=== PATIENT | female | born 1955 | race African-American/Black ===

== ENCOUNTER → 2018-07-28 | Outpatient (CLI) | payer OTHER ==
[~2018-07-28] VITALS: Ht 154.9 cm; Wt 83.9 kg
[~2018-07-28] MED LIST: ACYCLOVIR 400400 MG PO; AMLODIPINE BESY10 MG PO; FELODIPINE 5 MG5 M1 PO; FISH OIL 1,001000 M2 PO; FLUOCINOLONE AC15 GM TOP; HYDROCHLOROTHIA25 M2 PO; LOSARTAN POTAS100 MG PO; PROAIR HFA8.5 GM INH; SIMVASTATIN40 MG PO; SINGULAIR 10 MG10 M1 PO; TRAMADOL 50 MG50 MG PO
--- NOTE | ~2018-07-28 | PATH ---
[facility] [address] [address] PATHOLOGY RPT PROCEDURE Name: TIERRA GRIFFITH ALFONSO Room #: REG [facility] Chi.#: [id number] Admission: 07/28/18 Date of : 55 Discharge: Report #: [id number] Path Case #: [id number] [facility] Accession Number: [id number] . 01 Material submitted: . PART A: POLYP AT 70 CM PART B: BX OF POLYP AT PROX ASCENDING COLON PART C: POLYP AT HEPATIC FLEXURE . 01 Clinical history: . Screening, colon polyps, diverticulosis . 02 Diagnosis: A. Polyp, at 70 cm, endoscopic biopsy: - Larger fragment showing a tubular adenoma without high-grade dysplasia. - Smaller fragments sampled showing hyperplastic changes without any dysplasia. . B. Polyp, at proximal ascending colon, endoscopic biopsy: - Tubular adenoma. - Negative for high-grade dysplasia. . C. Polyp, at hepatic flexure, endoscopic biopsy: - Tubular adenoma. - Negative for high-grade dysplasia. (IUV:pit 07/29/2018) QTP/07/29/2018 . 02 Electronically signed: . Pippa Enamorado MD, Pathologist NPI- [id number] . 01 Gross description: . A.The specimen is received in formalin, labeled "Tierra Griffith, polyp at 70 cm and biopsy of polyp", is a oreilly, rubbery sessile polyp measuring 0.8 x 0.6 x 0.6 cm inked black and then serially sectioned and entirely submitted in A1. Also received are several oreilly soft tissue fragments measuring 0.5 measuring 0.5 x 0.2 x 0.1 cm in aggregate entirely submitted in A2. . B.The specimen is received in formalin, labeled "Tierra Griffith, BX of polyp at proximal ascending colon", are three oreilly polypoid soft tissues ranging from 0.1 cm up to 0.4 cm in greatest dimension and measuring 0.6 x 0.4 x 0.2 cm in aggregate. The specimen is entirely submitted in B1. . C.The specimen is received in formalin, labeled "Tierra Griffith, BX of polyp at hepatic flexure", are two oreilly soft tissues 0.3 cm and a 0.4 cm in greatest dimension, entirely submitted in C1. [address] [address] PATHOLOGY RPT PROCEDURE Name: TIERRA GRIFFITH ALFONSO [id number] Admission: 07/28/18 Date of : 55 Discharge: Report #: [id number] Path Case #: [id number] (SWS; 07/28/2018) SHS/SHS . 02 Pathologist provided ICD-10: D12.6, D12.2, D12.3 . 02 CPT . 239622, 048488, 585917 Specimen Comment: A courtesy copy of this report has been sent to Specimen Comment: [phone], . Specimen Comment: Report sent to / DR CADENA Performed at: [address] [id number] MD Thomas Patton MD Phone: [phone] Performed at: [address] [id number] MD Pippa Enamorado MD Phone: [phone]
--- NOTE | ~2018-07-28 | P ---
[facility] [place] [address] PROCEDURE REPORT Name: TIERRA GRIFFITH Room #: REG [facility]#: [id number] Admission: 07/28/18 Attend Phys: Raheel Ordoñez MD Discharge: Date of : 55 Report #: [id number] THIS REPORT FOR: //name// CC: Chuy Ordoñez DATE OF SERVICE: 07/28/2018 BRIEF HISTORY: The patient is a 62-year-old woman with family history of colon cancer. She has 2 brothers who had colon cancer, one in his 50s and one in his 70s. Her last colonoscopy was 9 years ago. She reports there were no abnormalities. She presents for colonoscopy due to family history of colon cancer. PREOPERATIVE DIAGNOSIS: Family history of colon cancer. POSTOPERATIVE DIAGNOSES: 1. Multiple colon polyps. 2. Mild to moderate sigmoid diverticulosis coli. MEDICATIONS: Deep sedation with propofol per Anesthesia. SPECIMENS: 1. A 1 cm sessile polyp at 70 cm. 2. Diminutive polyp, proximal ascending colon. 3. Diminutive polyp, hepatic flexure. ESTIMATED BLOOD LOSS: 3 mL. PROCEDURE: Colonoscopy to cecum and terminal ileum with snare polypectomy and biopsy. FINDINGS: Prior to propofol sedation, procedure of colonoscopy discussed with the patient as well as potential risks and its complications. She indicates she understands and desires to proceed. DESCRIPTION OF PROCEDURE: With the patient in left lateral decubitus position, digital examination was completed, which revealed no abnormalities. Subsequently, the Olympus video colonoscope was introduced in the rectum, was advanced under direct vision. As we advanced the scope, at 70 cm a 1 cm sessile polyp was seen and removed by cold snare polypectomy and recovered. There was a small fragment remaining, which was cleaned up with biopsy forceps. The scope was then advanced into the cecum, which was identified by the ileocecal valve and the appendiceal orifice. I was able to visualize the distal segment of the terminal ileum, which was inspected and noted to be unremarkable. At that [facility] [address] [place] [address] PROCEDURE REPORT Name: TIERRA GRIFFITH Room #: REG [facility]#: [id number] Admission: 07/28/18 Attend Phys: Raheel Ordoñez MD Discharge: Date of : 55 Report #: [id number] point, the scope was slowly withdrawn and careful circumferential views were obtained. The prep was good, the mucosa was within normal limits, normal vascular pattern, normal light reflex. As the scope was withdrawn, a diminutive polyp in the range of about 4 mm was seen in the proximal ascending colon, removed by biopsy forceps. A 2 mm diminutive polyp was seen and removed by biopsy forceps from the hepatic flexure. As we withdrew the scope, no additional neoplastic lesions were seen. The previously noted polypectomy site was identified and there was a small amount of oozing and a clip was placed on the polypectomy site and good hemostasis was achieved. The scope was further withdrawn. No additional abnormalities were seen. Scope was withdrawn in the rectum and upon retroflexion no abnormalities were seen. Scope was withdrawn. The patient tolerated the procedure well. CONDITION OF THE PATIENT UPON DISCHARGE: Following procedure, the patient drowsy, aroused, conversant and will be discharged to home when fully ambulatory. INSTRUCTIONS TO THE PATIENT AND FAMILY AT THE TIME OF DISCHARGE: Polyps identified and removed as described above. We will follow up on the path and make further recommendations. If all 3 are adenomas, she is return in 3 years, otherwise she will return in 5 years due to the finding of polyps and family history. She will return to care of Dr. Chuy Encinas, return to see me as needed. Last colonoscopy was 9 years ago. Withdrawal time from the cecum was 19 minutes and 7 seconds. <ELECTRONICALLY SIGNED> By: Raheel Ordoñez MD 08/02/18 [id number] Raheel Ordoñez MD /nt
== END | disposition home or self-care (01) ==
LOC: GI 08:07
DX: Z12.11 Encounter for screening for malignant neoplasm of colon (principal); Z80.0 Family history of malignant neoplasm of digestive organs; D12.2 Benign neoplasm of ascending colon; D12.3 Benign neoplasm of transverse colon; D12.4 Benign neoplasm of descending colon; K57.30 Diverticulosis of large intestine without perforation or abscess without bleeding; J45.909 Unspecified asthma, uncomplicated; I10 Essential (primary) hypertension; E78.00 Pure hypercholesterolemia, unspecified; K21.9 Gastro-esophageal reflux disease without esophagitis; M79.7 Fibromyalgia; M19.90 Unspecified osteoarthritis, unspecified site; Z91.040 Latex allergy status; Z87.891 Personal history of nicotine dependence; Z90.711 Acquired absence of uterus with remaining cervical stump; Z98.890 Other specified postprocedural states; Z79.899 Other long term (current) drug therapy; Z88.0 Allergy status to penicillin; Z88.8 Allergy status to other drugs, medicaments and biological substances
CPT/HCPCS: 62110; 62900

== ENCOUNTER → 2018-08-10 | Outpatient (CLI) | payer OTHER | LOC: RAD 12:07 | DX: Z12.31 Encounter for screening mammogram for malignant neoplasm of breast (principal) ==

== ENCOUNTER → 2021-09-26 | Outpatient (CLI) | payer OTHER | LOC: LAB 10:25 | PROVIDERS: ATTEND Student in an Organized Health Care Education/Training Program | DX: Z01.812 Encounter for preprocedural laboratory examination (principal); Z20.822 Contact with and (suspected) exposure to COVID-19 ==

== ENCOUNTER → 2021-09-30 | Outpatient (CLI) | payer OTHER ==
[~2021-09-30] VITALS: Ht 152.4 cm; Wt 89.4 kg
[~2021-09-30] MED LIST changes: +DILTIAZEM ER90 M1 PO; +HYDROCHLOROTHIA25 M1 PO; -HYDROCHLOROTHIA25 M2 PO; +ZYRTEC10 M5 PO
== END | disposition home or self-care (01) ==
LOC: GI 06:22
PROVIDERS: ATTEND Internal Medicine Gastroenterology
DX: Z12.11 Encounter for screening for malignant neoplasm of colon (principal); Z86.010 Personal history of colon polyps; Z80.0 Family history of malignant neoplasm of digestive organs; K57.30 Diverticulosis of large intestine without perforation or abscess without bleeding; K64.8 Other hemorrhoids; I10 Essential (primary) hypertension; E78.00 Pure hypercholesterolemia, unspecified; J45.909 Unspecified asthma, uncomplicated; K21.9 Gastro-esophageal reflux disease without esophagitis; M79.7 Fibromyalgia; M19.90 Unspecified osteoarthritis, unspecified site; Z98.890 Other specified postprocedural states; Z79.899 Other long term (current) drug therapy; Z87.891 Personal history of nicotine dependence; Z91.040 Latex allergy status
CPT/HCPCS: 62110; 62900